=== PATIENT | male | born 1930 | race Caucasian/White ===

== ENCOUNTER 2018-09-02 17:05 | Observation (INO) | payer MEDICARE ==
[~2018-09-02] VITALS: Ht 165.1 cm; Wt 77.0 kg
--- NOTE | 2018-09-02 17:05 | NUR ---
PT TO ROOM VIA EMS STRETCHER. ACCUCHECK 69. PT ALERT TO PERSON ONLY. PER EMS PT HAS HX OF DEMENTIA.
--- NOTE | 2018-09-02 18:00 | NUR ---
EDP HAS SUTURED SMALL LAC TO FOREHEAD, WELL TOLERATED BY PT.
[2018-09-02] MEDS ORDERED: NOVOLIN N100 UNIT/2 SC (18:14)
[2018-09-02] MEDS ORDERED: LASIX 40 MG40 MG/TAB PO (18:14)
[2018-09-02] MEDS ORDERED: NOVOLIN N100 UNIT/1 SC (18:15)
[2018-09-02] MEDS ORDERED: LOSARTAN POTASS25 MG PO (18:15)
[2018-09-02] MEDS ORDERED: MEMANTINE HCL10 MG PO (18:41)
[2018-09-02] MEDS ORDERED: GLIPIZIDE5 MG PO (18:42)
[2018-09-02] MEDS ORDERED: ASPIRIN81 MG PO (18:42)
[2018-09-02] MEDS ORDERED: ATORVASTATIN CA40 MG PO (18:43)
[2018-09-02] MEDS ORDERED: PRAZOSIN HCL2 MG PO (18:43)
[2018-09-02 18:49] LABS: HEMATOCRIT 37.7 % (39.0-50.0); HEMOGLOBIN 12.2 g/dl (14.0-18.0); IMMATURE GRANULOCYTES 0.4 % (0.0-5.0); MEAN CELL VOLUME 94.7 fL CALC (80.0-100.0); MEAN CORPUSCULAR HGB 30.7 pG CALC (26.0-32.0); MEAN CORPUSCULAR HGB CONC 32.4 g/L CALC (32.0-36.0); NEUT# 9.72 thou/uL (1.82-7.42); RED BLOOD COUNT 3.98 mill/uL (4.70-6.10); RED CELL DISTRI WIDTH 14.6 % (11.5-15.5)
[2018-09-02 18:55] LABS: ANION GAP 15 (6-22 (CALC)); BUN 29 mg/dL (8-23); BUN/CREATININE RATIO 21 (12-20 (CALC)); CARBON DIOXIDE 24 mmol/l (22-30); CHLORIDE 108 mmol/l (95-108); CREATININE 1.3 mg/dL (0.7-1.3); GFR 52 ML/MIN (>=60 (CALC)); GFR FOR AFR.AMER. > 60 ML/MIN (>=60 (CALC)); POTASSIUM 3.7 mmol/l (3.5-5.1); SODIUM 144 mmol/l (137-146)
--- NOTE | 2018-09-02 19:00 | NUR ---
SON ARRIVES, ABLE TO PROVIDE MED LIST. PT REMAINS BEFORE, CONFUSED BUT IN NO DISTRESS.
--- NOTE | 2018-09-02 20:30 | NUR ---
PT. ARRIVED TO THE FLOOR VIA STRETCHER ACCOMPANIED BY ER NURSE; PT. ASSISTED WITH AMBULATION TO BED WITH 2 STAFF ASSIT; IV SITE PATENT AND ORDERED IVF INFUSING TO LHAND IV SITE WITH NO REDNESS OR SWELLING NOTED TO SITE; EDUCATED BAKER BREAD LIGHT USE AND BED ALARM SET FOR SAFETY; MERCHANDISE CLERK IN AT BEDSIDE OBTAINING VS; CALL LIGHT IS IN REACH. WILL CONTINUE TO MONITOR.
[2018-09-02 20:35] VITALS: BP 169/66
--- NOTE | 2018-09-02 20:43 | NUR ---
PT TAKEN TO ROOM 289 WITHOUT INCIDENT, REPORT WAS TO SHARLENE.
[2018-09-03] VITALS (7 sets, daily range): BP systolic 130–158; BP diastolic 60–87
--- NOTE | 2018-09-03 01:50 | NUR ---
PT. HAS YET TO VOID AND IS NOT INCONTINENT AT THIS TIME; BLADDER SCANNED AT THIS TIME AND IS SHOWING 468MLS IN BLADDER; PLACED URINAL IN BETWEEN LEGS AND WILL ALLOW PT. SOME TIME TO URINATE; WILL CHECK SHORTLY.
--- NOTE | 2018-09-03 02:52 | NUR ---
DUE TO LAST BLADDER SCAN SHOWING RETENTION OF 572 MLS TO BLADDER; ORDERS RECEIVED TO PLACE CATHETER; ; PT. HAD A TIGHT FORESKIN AND WAS THEREFOR DIFFICULT TO PLACE; 16 [address] OKEEFE CATHETER PLACED BY EMILE FERNANDEZ;
[2018-09-03 03:26] LABS: URINE BILIRUBIN - DIPSTICK NEGATIVE (NEGATIVE); URINE BLOOD DIPSTICK NEGATIVE (NEGATIVE); URINE COLOR YELLOW; URINE GLUCOSE - DIPSTICK 250 mg/dL (NEGATIVE); URINE KETONE NEGATIVE (NEGATIVE); URINE LEUK ESTERASE NEGATIVE (NEGATIVE); URINE NITRITE - DIPSTICK NEGATIVE (Negative); URINE PROTEIN - DIPSTICK TRACE mg/dL (NEG-TRACE); URINE SPECIFIC GRAVITY 1.025; URINE UROBILINOGEN - DIPSTICK 0.2 E.U./dL (0.2)
--- NOTE | 2018-09-03 06:35 | NUR ---
SPOKE WITH DR. PEDRAZA AND NOTIFIED HIM OF BS THROUGH OUT THE NIGHT; NEW ORDERS RECEIVED TO D/C IVF AND CHANGE FREQUENCY OF ACCUCHECKS TO ACHS; ALSO NOTIFIED HIM EARLIER OF DIFFICULTY OF INSERTION OF CATHETER EARLIER WHEN PT. HAD RETENTION; ORDER RECEIVED TO LEAVE OKEEFE CATHTER IN AT THIS TIME;
--- NOTE | 2018-09-03 07:18 | NUR ---
REPORT RECEIVED FROM EMILE COOLEY RN. DURING REPORT [facility] 0.189 CALLED TO EMILE GODFREY. EMILE GODFREY NOTIFIED DR. GRUBER. EKG OBTAINED FOR PHYSICIANS REVIEW. VSS. PT CONFUSED. ANSWERS QUESTIONS INAPPROPRAITELY. DISORIENTED TO PERSON, PLACE AND TIME. DENIES PAIN. REPORTING OF CONCERNS ENCOURAGED. CALL LIGHT REVIEWED AND IN REACH. FALL PRECAUTIONS REINFORCED. BED ALARM SET FOR SAFETY.
--- NOTE | 2018-09-03 14:00 | NUR ---
DR. GRUBER IN TO SEE PT. PLAN OF CARE UPDATED.
--- NOTE | 2018-09-03 19:32 | NUR ---
PT. SITTING UP IN BED WITH NO RESP. DISTRESS NOTED; ASSESSMENT COMPLETED; IV SITE PATENT AND SL; CATHETER INTACT AND DRAINING YELLOW URINE AT GRAVITY; SAFETY REVIEWED WITH PT. BED ALARM ON; PLACED TELEMETRY ON PT'S BACK D/T HIM REMOVING IT REPEATEDLY FROM THE FRONT; CALL LIGHT IS IN REACH; WILL CONTINUE TO MONITOR.
--- NOTE | 2018-09-03 20:05 | NUR ---
SPOKE WITH DR. PEDRAZA AND NOTIFIED HIM OF [facility] WELL PREVIOUS ONES THIS ADMISSION; ALSO NOTIFIED HIM THAT PT. IS VERY CONFUSED AND WILL NOT STAY IN BED AND IS CONTINUOUSLY TAKING OFF TELEMETRY; NEW ORDERS RECEIVED FOR ONE TIME DOSE OF XANAX; WILL CARRY THIS OUT.
--- NOTE | 2018-09-03 20:44 | NUR ---
DAE AYOUB, IN AT BEDSIDE SITTING WITH PT. FOR SAFETY PRECAUTIONS AT THIS TIME; D/T PT. CONTINUOSLY PULLING AT CATHETER AND MULTIPLE ATTEMPTS TO GET OOB; MEDICATED WITH ORDERED XANAX; BED ALARM ON; WILL CONTINUE TO MONITOR.
--- NOTE | 2018-09-03 21:29 | NUR ---
NOTIFIED DR. PEDRAZA THAT XANAX GIVEN HAS STILL HAD NO EFFECT ON PT. AND THAT HE CONTINUES TO PULL ON OKEEFE CATHETER AND IS BLEEDING AT PENIS AND HAS SOME BLOOD NOTED TO TUBING D/T THE TRAUMA PT. CAUSED TO HIMSELF; ALSO NOTIFIED HIM OF PT. CONTINUING TO ATTEMPT TO GET OOB; PT. IS VERY CONFUSED; ATTEMPTED TO RE-ORIENT NUMEROUS TIMES AND ALL PT. DOES IS LAUGH; PT. IS NOT ABLE TO COMPREHEND OR RECALL AND RE-DIRECTION GIVEN; NEW ORDERS FOR ONE TIME DOSE OF SEROQUEL AND AN ORDER FOR REPEAT EKG AT MIDNIGHT; WILL CARRY THESE ORDERS OUT;
--- NOTE | 2018-09-04 00:08 | NUR ---
NOTIFIED DR. PEDRAZA OF PT. CONTINUING TO PULL AT CATHETER AND HAS MORE BLEEDING NOTED TO OKEEFE CATHETER INSERTION SITE WELL IN TUBING R/T TRAUMA FROM PT. PULLING; ALSO THAT PT. IS STILL RESTLESS AND CONTINUING TO ATTEMPT TO GET OOB; NEW ORDERS RECEIVED FOR ONE TIME XANAX AND UROLOGY CONSULT IN AM; WILL CARRY OUT THESE ORDERS;
--- NOTE | 2018-09-04 00:40 | NUR ---
WHEN ENTERING ROOM TO CHECK ON PT. HE IS NOW RESTING WITH EYES CLOSED; WILL HOLD OFF ON ADMINISTRATION OF XANAX AT THIS TIME; AND STAFF IS RELEASED FROM ROOM NOW THAT PT. APPEARS TO BE SLEEPING; PULL BED ALARM ATTACHED TO GOWN AND BED ALARM TO BED SET; WILL CONTINUE TO MONITOR PT. OFTEN FOR SAFETY PRECAUTIONS;
--- NOTE | 2018-09-04 03:30 | NUR ---
PT. LYING DOWN IN BED WITH NO RESP DISTRESS NOTED; PT. WITH EYES CLOSED BUT INTERMITTENTLY PULLING AT GOWN AND BLANKET; GOWN IS PARTIALLY REMOVED AT THIS TIME AND REAPPLIED; CATHETER IS INTACT WITH URINE APPEARING TO TUBING WITH SLIGHT BLOOD NOTED;NO CLOTS NOTED; BED ALARM ON AND CALL LIGHT IS IN REACH; WILL CONTINUE TO MONITOR.
--- NOTE | 2018-09-04 03:53 | NUR ---
PT. NOW FULLY AWAKE; BED ALARM GOING OFF ON BED AND PULL ARM; PT. FOUND UNDRESSING IV SITE AND TUGGING ON OKEEFE CATHETER AGAIN; MEDICATED WITH ONE TIME DOSE OF XANAX AT THIS TIME. PT. PULLED UP IN BED AND REPOSITIONED; VS ASSESSED; SNACK GIVEN AND ORAL FLUIDS OFFERED; CALL LIGHT IS IN REACH; WILL CONTINUE TO MONITOR.
[2018-09-04 03:59] VITALS: BP 140/42
[2018-09-04 05:59] LABS: HEMATOCRIT 36.8 % (39.0-50.0); HEMOGLOBIN 11.9 g/dl (14.0-18.0); IMMATURE GRANULOCYTES 0.4 % (0.0-5.0); MEAN CELL VOLUME 94.4 fL CALC (80.0-100.0); MEAN CORPUSCULAR HGB 30.5 pG CALC (26.0-32.0); MEAN CORPUSCULAR HGB CONC 32.3 g/L CALC (32.0-36.0); NEUT# 6.07 thou/uL (1.82-7.42); RED BLOOD COUNT 3.9 mill/uL (4.70-6.10); RED CELL DISTRI WIDTH 14.2 % (11.5-15.5)
[2018-09-04 06:00] LABS: ALBUMIN 3.1 g/dL (3.2-5.0); ALKALINE PHOSPHATASE 84 u/l (38-126); AMYLASE < 30 u/l (30-110); ANION GAP 13 (6-22 (CALC)); BILIRUBIN, TOTAL 0.6 mg/dL (0.0-1.4); BUN 30 mg/dL (8-23); BUN/CREATININE RATIO 23 (12-20 (CALC)); CARBON DIOXIDE 27 mmol/l (22-30); CHLORIDE 104 mmol/l (95-108); CREATININE 1.3 mg/dL (0.7-1.3); GFR 52 ML/MIN (>=60 (CALC)); GFR FOR AFR.AMER. > 60 ML/MIN (>=60 (CALC)); LIPASE 39 u/l (23-300); MAGNESIUM 1.8 mg/dL (1.6-2.3); POTASSIUM 3.5 mmol/l (3.5-5.1); SGOT/AST 32 u/l (19-48); SODIUM 140 mmol/l (137-146); TOTAL PROTEIN 5.6 g/dL (6.3-8.2)
--- NOTE | 2018-09-04 06:42 | NUR ---
BEEN IN PT'S ROOM NUMEROUS TIMES; HAD KORINA WHEATLEY, SIT WITH PT. FROM [phone]; PT. CONTINUOUSLY TUGS AT CATHETER AND THROWING HIS LEGS OVER THE BED; RE-ORIENTED NUMEROUS TIMES AND UNSUCCESSFUL EVERY TIME; BED ALARM IN PLACE; WILL CONTINUE TO MONITOR FREQUENTLY; CALL LIGHT IS IN REACH.
--- NOTE | 2018-09-04 07:16 | NUR ---
REPORT RECEIVED FROM PRASANNA. SERVICE PERSON IN ROOM AT SIDE AND BED ALARM IN PLACE. OKEEFE IS PATENT WITH BLOODY URINE.
--- NOTE | 2018-09-04 07:56 | NUR ---
DR. WAGNER CALLED. NOTIFIED THAT OKEEFE PATENT BUT BLOODY URINE NOTED. NO ORDERS RECEIVED AT THIS TIME.
--- NOTE | 2018-09-04 08:05 | NUR ---
I CALLED TO VERIFY THE CONSULTATION @0800 AND I SPOKE WITH KAITLYNN FROM DR. WAGNER OFFICE. SHE VERIFIED THE CONSULTATION AND HE CALLED BACK @802. #[phone]
--- NOTE | 2018-09-04 09:00 | NUR ---
DR. GRUBER AT BEDSIDE TO ASSESS THE OKEEFE WITH BLOODY URINE. STATED WILL SPEAK TO DR. WAGNER AGAIN. TOLD DR. GRUBER THAT PT IS RESTLESS AND TUGS ON OKEEFE. ASSESSMENT DONE. TELE IN PLACE. REPS EVEN AND UNLABORED. PT ALERT TO SELF ONLY AND CONFUSE. HAVE TO BE REINFORCING WITH PT TO STOP TUGGING ON OKEEFE. PT KEEPS TAKING OF HIS BLANKET. BED ALARM IN PLACE FOR SAFETY.
[2018-09-04 09:09] VITALS: BP 144/66
--- NOTE | 2018-09-04 11:03 | NUR ---
PT IS LESS RESTLESS BUT HAVE TO CONTINUE TO REINFORCE THAT HE CAN'T BE TUGGING ON OKEEFE. OKEEFE IS PATENT WITH BLOODY URINE AND NO BLOOD CLOTS NOTED AT THIS TIME. BED ALARM IN PLACE.
[2018-09-04 12:00] VITALS: BP 153/68
--- NOTE | 2018-09-04 15:40 | NUR ---
SITER IN ROOM. TOLD DR. GRUBER THAT I DID THE SECOND BLADDER IRRIGATION. WITH NO RETURN OF NS FLUID. PT HAS ONLY 20ML OF BLOODY URINE IN OKEEFE. STATED TO DO A BLADDER SCAN. NOTIFIED MD THAT PT HAS 717ML-190ML IRRIGATION THUS PT HAS 527ML URINE. NO NEW ORDERD RECEIVED AT THIS TIME. ONLY STATED WAITNG FOR HOSPICE TO COME.
--- NOTE | 2018-09-04 16:20 | NUR ---
PATIENT IS RESTLESS AND TUGGING WITH OKEEFE. TRYING TO REMOVED GOWN AND BLANKET. SITTER IN ROOM TO REINFORCED PT TO NOT TUG ON OKEEFE. BED ALARM IN PLACE.
[2018-09-04 16:40] VITALS: BP 164/75
--- NOTE | 2018-09-04 17:39 | NUR ---
CALLED DR. PEDRAZA RE: PT URINE OUTPUT OF ONLY 20ML OF BLOODY URINE. STATED CALLED DR. WAGNER.
--- NOTE | 2018-09-04 17:47 | NUR ---
CALLED DR. WAGNER HE STATED TO REMOVE OKEEFE AND USE #20 OKEEFE.
--- NOTE | 2018-09-04 18:15 | NUR ---
EMILE COLLINS INSERTED A #20 OKEEFE 700ML-190ML IRRIGATION THUS 510 ML BLOODY URINE WAS THE OUTPUT. BED ALARM IN PLACE.
[2018-09-04 19:20] VITALS: BP 139/58
--- NOTE | 2018-09-04 19:24 | NUR ---
ASSESSMENT COMPLETED; PT. WITH EYES CLOSED AT THIS TIME; KORINA WHEATLEY SITTING AT BEDSIDE WITH PT. FOR SAFETY; BED ALARM ON; OKEEFE CATHETER INTACT AND DRAINING BLOODY URINE; NO CLOTS NOTED; WILL CONTINUE TO MONITOR. VSS; CALL LIGHT IS IN REACH; WILL CONTINUE TO MONITOR.
--- NOTE | 2018-09-04 23:21 | NUR ---
PT SLEEPING, STILL CONTINUES TO FIDGET W/OKEFEE CATHETER ATTEMPTING TO DISLODGE. APPEARS AGITATED AT TIMES. PT REPOSITIONED AND ATTEMPTS TO COMFORT AND REORIENT AT TIMES OF AGITATION. PT NOT OPENING EYES AT THESE TIMES/NOT INTERACTING AT ALL. OKEEFE CATHETER APPEARS PATENT DRAINING BLOODY URINE W/SEDIMENT. MOUTH CARE PROVIDED. PT RESTING IN BED W/EYES CLOSED, BED ALARM ON AND JUNIOR PARALEGAL SITTING AT BEDSIDE.
--- NOTE | 2018-09-05 00:35 | NUR ---
PT'S OKEEFE CATHETER IRRIGATED BY EMILE CHAVIRA, WITH 100MLS PER ORDER IN 50 MLS INCREMENTS; INITIAL IRRIGATION RETURNED THE 50MLS ON SECOND 50MLS ONLY 10MLS RETURNED; RECONNECTED TUBING TO CATHETER AND IS NOW DRAINING INTO TUBING CLEAR RED DRAINAGE AT GRAVITY LEVEL; WILL MONITOR PT. AND HIS OUTPUT; EMILE CHAVIRA SITTING AT BEDSIDE SITTER FOR TONIGHT; BED ALARM ON; CALL LIGHT IS IN REACH.
--- NOTE | 2018-09-05 02:10 | NUR ---
PT BECOMING VERY AGITATED, ATTEMPTING TO PULL ON OKEEFE CATHETER MULTIPLE TIMES, ATTEMPTING TO GET OUT OF BED. I ASSISTED PT IN REPOSITIONING FOR COMFORT, REPLACED BLANKETS. PT HAS BEEN CLEANED OF SMALL AMOUNT OF INCONTINENT BROWN SOFT STOOL AND AVIS/OKEEFE CATHETER CARE PROVIDED. OFFERED PO FLUIDS AND FOOD/REFUSED. PT MEDICATED FOR AGITATION AT THIS TIME ORDERS PROVIDE. OKEEFE CATHETER APPEARS PATENT AT THIS TIME, SMALL AMOUNTS OF PINK BLOODY URINE DRAINING FROM CATHETER. WILL CONTINUE TO MONITOR CLOSELY. BED ALARM ON AND REGULATORY AGENCY DIRECTOR SITTING W/PT.
--- NOTE | 2018-09-05 04:05 | NUR ---
PT REPOSITIONED W/PILLOWS, NO S/O DISTRESS NOTED, PT SLEEPING AT THIS TIME. BECOMES FIDGETY W/HANDS TO OKEEFE CATHETER MULTIPLE TIMES AND WILL MAKE A GROANING SOUND, BUT EYES REMAIN CLOSED AND NO VERBAL COMMUNICATION.
[2018-09-05 04:34] VITALS: BP 140/80
--- NOTE | 2018-09-05 06:03 | NUR ---
PT'S OKEEFE CATHETER IRRIGATED AGAIN AT THIS TIME; URINE IS LIGHT PINK; NO CLOTS NOTED; OKEEFE TO GBRAVITY; SITTER REMAINS AT BEDSIDE;
--- NOTE | 2018-09-05 06:15 | NUR ---
ORAL CARE PROVIDED TO PT, BUT HE REFUSED TO DRINK ANY PO FLUIDS. REMAINS ASLEEP, BUT HANDS KEEP MOVING TO CATHETER INSERTION SITE. BED ALARM ON AND PARER SITTING W/PT.
--- NOTE | 2018-09-05 06:30 | NUR ---
NOTIFIED DR. PEDRAZA OF LOW POTASSIUM AT 2.5 THIS AM IN LABS; NEW ORDERS RECEIVED AND TO BE CARRIED OUT.
--- NOTE | 2018-09-05 08:02 | NUR ---
SHIFT CHANGE REPORT, PT SLEEPING, BREATHING UNEVEN BUT NON-ALBORED, NO SIGN DISCOMFORT, SITTER AT BEDSIDE, CALL EARL IN REACH.
[2018-09-05 10:09] VITALS: BP 106/49
--- NOTE | 2018-09-05 12:36 | NUR ---
PT IS STILL ASLEEP, NO SIGN DISCOMFORT. FAMILY VISITING, HOSPICE REP HERE TO MEET WITH FAMILY AND DISCUSS PLAN, WILL CONTINUE TO MONITOR.
[2018-09-05 15:11] VITALS: BP 131/61
--- NOTE | 2018-09-05 15:31 | NUR ---
Discharge instructions given. Patient verbalizes understanding of same. Discharged in stable condition via Medical Transport to *Other with *Other. All belongings sent with pt.
--- NOTE | 2018-09-05 15:47 | NUR ---
OKEEFE CATHETER REMOVED AFTER DEFLATING BALLOON, SMALL CLOTS OVSERVED AT TIP OF CATHETER.
== END 2018-09-05 15:26 | disposition hospice, inpatient (51) ==
LOC: ED 17:05 → ED-I 19:33 → ED 19:51 → MS2 19:52
PROVIDERS: Family Medicine; Internal Medicine Nephrology; ADMIT Internal Medicine; ATTEND Internal Medicine
PROC: 0HQ1XZZ Repair Face Skin, External Approach (ICD-10-PCS; principal; 2018-09-02)
PROC: 0T9B70Z Drainage of Bladder with Drainage Device, Via Natural or Artificial Opening (ICD-10-PCS; 2018-09-03)
DX: E11.649 Type 2 diabetes mellitus with hypoglycemia without coma (principal); G93.41 Metabolic encephalopathy; F03.91 Unspecified dementia, unspecified severity, with behavioral disturbance; S01.81XA Laceration without foreign body of other part of head, initial encounter; I10 Essential (primary) hypertension; N40.1 Benign prostatic hyperplasia with lower urinary tract symptoms; R33.8 Other retention of urine; R31.0 Gross hematuria; S37.39XA Other injury of urethra, initial encounter; E46 Unspecified protein-calorie malnutrition; R62.7 Adult failure to thrive; W18.11XA Fall from or off toilet without subsequent striking against object, initial encounter; X58.XXXA Exposure to other specified factors, initial encounter; Y92.002 Bathroom of unspecified non-institutional (private) residence as the place of occurrence of the external cause; Z68.28 Body mass index [BMI] 28.0-28.9, adult; Z51.5 Encounter for palliative care
CPT/HCPCS: G0378; J2060